=== PATIENT | male | born 1980 | race Caucasian/White ===

== ENCOUNTER → 2023-10-01 | Outpatient (CLI) | payer OTHER ==
[2023-10-01 09:27] VITALS: BP 164/91; PULSE 88; RESP 16
--- NOTE | 2023-10-01 14:54 | P.PAINPG ---
PQRS Measure Charge Sheet Comment: HISTORY OF PRESENT ILLNESS: A 43 yr old male as a referral from Katerin HEREDIA presents today w severe and chronic LBP > 20 yrs secondary to DDD, spondylosis and facet arthropathy without myelopathy for evaluation. Pt states pain level is provoked at 7 /10 in intensity, constant, localized in the lumbar spine, predominantly axial, pinching in character w occasional shooting pain towards the buttocks, hips and LEs. Pain is provoked by laying supine. Pain is alleviated by physician guided home exercises every other day since Jun 2023, heat, medications (Tramadol #120, Neurontin 800mg #120, ASA), repositioning and rest . Oswestry axial pain score at 20. PMH: OA, HTN, Vitamin D Deficiency, GERD, Anxiety PSH: Facial laceration repair SH: Daily tobacco use, No ETOH abuse, Denies illicit drug use FH: Fa- MD possible OD of Soma. All: See list Meds: See list REVIEW OF ORGAN SYSTEMS: CONSTITUTIONAL: No fevers or chills. No recent weight loss. NEUROLOGICAL: + numbness and tingling along the distal extremities. No seizure disorders or headaches. MUSCULOSKELETAL: + pain PSYCHIATRIC: Denies current depression or suicidal thoughts. Physical Examinations : Constitutional : Cooperative , not in acute distress . Neurologic : Cranial nerve II to XII intact. No focal neurological deficits. Psychiatric : alert & oriented x 3. Matching mood & appropriate affect. Judgment & insight intact. Musculoskeletal : Cervical Spine Motor strength in the deltoid and biceps: Normal right side. Normal Left side Motor strength biceps and the wrist extensors: Normal right side . Normal left side Motor strength in the triceps muscle: Normal right side. Normal left side Deep tendon reflexes: Normal at the biceps. Normal at Brachioradialis. Normal at triceps Vertebral body tenderness to deep palpation over Cervical facet loading test: positive bilaterally Spurling test: positive bilaterally Neck distraction test: positive bilaterally Isael sign: positive bilaterally Lumbar spine Motor strength lower extremities ,thigh and legs 5/5 Right side , 5/5 Left side Deep tendon reflexes : Normal Knee Jerk. Normal Ankle Jerk Vertebral body tenderness over L4 Burton Test positive BL L4-L5 Lumbar facet Loading Test: positive Right / positive Left Range of motion of the lumbar spine Flexion 30 degrees, extension 10 degrees Straight Leg Raise test: Left/ Right positive at degrees Melinda test: positive right / positive left. Severe tenderness over the Sacroiliac joint on the Right / Left sides Gaenslen test: positive bilaterally Seated flexion test: positive bilaterally. Sacral spine : Severe tenderness over the Sacroiliac joint: right side / left side Range of motion: Flexion of the lumbar spine <60 degrees Range of motion: Extension of the lumbar spine <20 degrees Gaenslen's Test positive Melinda test: positive right side / left side Thigh Thrust Test Sacral Thrust Test Imaging: MRI non contrast lumbar spine from 2016 reviewed Assessment/ Plan : Lumbar DDD Recommendation of x ray lumbar spine, PT x 6 wks M51.36 . All questions answered. I have spent greater than 30 minutes on patient care today. Dr Weathers was available by phone for the evaluation of this patient. The time was used to review the medical records including relevant urine studies and Prescription history (MAPs), review of the available imaging, evaluation and examination of the patient, coordination of care with the medical staff and if applicable referring physicians, as well as creation of the medical record PQRS Narrative: Smoking Status Current every day smoker Home Medications: Ambulatory Orders Aspirin 325 mg PO DAILY PRN 08/02/13 clonazePAM [KlonoPIN] 1 mg PO BID 08/02/13 lisinopriL 30 mg PO QAM 08/02/13 HYDROcodone/APAP 10-325MG [[place] 10-325] 1 each PO Q6H PRN #120 tab 11/07/13 Controlled Substance Measures - Controlled Substance Measures Is patient prescribed a controlled substance at discharge?: No
--- NOTE | 2023-10-01 23:35 | XR ---
EXAMINATION TYPE: XR lumbar spine 2 or 3V DATE OF EXAM: 10/01/2023 COMPARISON: None HISTORY: Pain TECHNIQUE: 3 view lumbar spine FINDINGS: There is loss of disc at L4-5. Some vacuum disc phenomenon is present.. The vertebral body heights are preserved. There are 5 lumbar-type bodies. IMPRESSION: 1. Degenerative disc changes L4-5.
== END ==
LOC: PNWHC3 08:47
PROVIDERS: ATTEND Specialist
DX: M51.16 Intervertebral disc disorders with radiculopathy, lumbar region (principal); M47.26 Other spondylosis with radiculopathy, lumbar region; F17.200 Nicotine dependence, unspecified, uncomplicated
CPT/HCPCS: 72100; G0463; 99211

== ENCOUNTER → 2023-10-30 | Outpatient (CLI) | payer OTHER ==
--- NOTE | 2024-01-14 08:19 | MR ---
EXAMINATION TYPE: MR marcial wo con DATE OF EXAM: 10/30/2023 COMPARISON: 04/28/2015 HISTORY: Back pain CONTRAST: 0 mL intravenous Gadavist. TECHNIQUE: Multiplanar, multisequence images of the lumbar spine were acquired. Images are re-presented and corrected report provided 01/09/2024. FINDINGS: Cord terminates at the L1 level. L5-S1: Mild disc bulge is present. No thecal sac contact is evident. Facet hypertrophy is present on the left. Moderate right and severe left foraminal stenosis is present. Modic type I degenerative endplate changes are L5-S1. L4-L5: Disc space narrowing is present. Mild disc bulge is present which has mild to moderate anterior thecal sac contact. No AP spinal canal stenosis is present. Moderate left and minimal right foraminal narrowing is present. Modic type I degenerative endplate changes at L4-5 are present. L3-L4: Mild anterior thecal sac flattening is present. No AP spinal canal stenosis is present neural foramen are patent. Disc dessication is developing. L2-L3: There is a small left paracentral disc herniation with mild to moderate anterior thecal sac compression. No AP spinal canal stenosis present. Facet hypertrophy is present neural foramen are patent. L1-L2: No significant disc bulge or disc herniation. No spinal canal stenosis. No foraminal stenosis. T12-L1: No significant disc bulge or disc herniation. No spinal canal stenosis. No foraminal stenosis. Vertebral body heights are preserved. Disc desiccation is present L4-5 and to a milder degree L3-4 and L5-S1. COMPARISON: There is some progression of degenerative disc changes L4-5. Disc bulging may be slightly diminished at L5-S1 compared to prior study. Disc bulging at L4-5 is similar. The left paracentral disc herniation at L2-3 is larger than prior exam. Left L5-S1 foraminal stenosis is increased from comparison. IMPRESSION: 1. Left paracentral subligamentous disc herniation L2-3 with mild to moderate anterior thecal sac compression. No AP spinal canal stenosis. This is increased from comparison. 2. Broad-based disc bulge L4-5 with mild to moderate anterior thecal sac compression. No AP spinal canal stenosis. This is similar to comparison. 3. Severe left foraminal stenosis is increased from comparison. Stable moderate right foraminal stenosis L5-S1 and moderate left L4-5 foraminal stenosis is present. MTDD
== END | disposition home or self-care (01) ==
LOC: RADMRIMAIN 15:20
PROVIDERS: ATTEND Specialist
DX: M51.36 Other intervertebral disc degeneration, lumbar region
CPT/HCPCS: 72148

== ENCOUNTER → 2023-11-12 | Outpatient (CLI) | payer OTHER | LOC: PNWHC3 09:00 | PROVIDERS: ATTEND Specialist | CPT/HCPCS: 99211 ==